=== PATIENT | male | born 1995 | race Caucasian/White ===

== ENCOUNTER 2019-02-10 18:44 | Emergency (ER) | payer OTHER, MEDICAID, SELFPAY ==
[2019-02-10 19:19] VITALS: BP 119/82; PULSE 104; RESP 16; TEMP 36.4; O2SAT 96; BMI 28.5
--- NOTE | 2019-02-10 20:11 | ED_ITS ---
HPI - Skin/Abscess/Foreign Bdy General Chief complaint: Skin/Abscess/Foreign Body Stated complaint: left cyst under butt cheek x3 days Time Seen by Provider: 02/10/19 18:47 Source: patient and family Mode of arrival: Ambulatory Limitations: no limitations History of Present Illness HPI narrative: 23-year-old male smoker with benign medical history presents with his significant other in the chief complaint of a red painful lump on his left buttock which started draining earlier today. It has been there for about a week and he saw his primary doctor few days ago was put on Bactrim. States he has had trouble keeping the Bactrim down as it makes him nauseated. He denies any other systemic findings such as fever chills. He denies any pain with bowel or urination MD complaint: abscess/boil Onset (ago): day(s) Tetanus up to date: yes Location: buttocks Severity: mild Quality: burning and aching Pain Consistency: constant Relieving factors: none Exacerbating factors: palpation Context: none Associated symptoms: denies other symptoms Treatments prior to arrival: bandages, attempted to drain pus at home and antibiotic Related Data Previous Rx's Medication Instructions Recorded doxycycline hyclate 100 mg PO BID #20 cap 02/10/19 Allergies Allergy/AdvReac Type Severity Reaction Status Date / Time prednisone Allergy Verified 02/10/19 20:56 Review of Systems Constitutional Constitutional: Denies chills, Denies fatigue, Denies fever(s), Denies frequent falls, Denies lethargy and Denies weakness Eyes Eyes: Denies change in vision, Denies eye discharge, Denies irritation and Denies loss of vision ENT Ears, Nose, Mouth, and Throat: Denies change in voice, Denies dizziness, Denies neck pain, Denies sore throat and Denies throat swelling Cardiovascular Cardiovascular: Denies chest pain, Denies irregular heart rhythm, Denies lightheadedness, Denies palpitations, Denies dyspnea, Denies dyspnea on exertion and Denies orthopnea Respiratory Respiratory: Denies cough, Denies dyspnea, Denies dyspnea on exertion and Denies wheezing Gastrointestinal Gastrointestinal: Denies abdominal pain, Denies change in bowel habits, Denies diarrhea, Reports nausea and Reports vomiting Genitourinary Genitourinary: Denies hematuria, Denies flank pain, Denies urinary incontinence and Denies urinary urgency Musculoskeletal Musculoskeletal: Denies back pain, Denies muscle weakness, Denies neck pain, Denies numbness and Denies tingling Integumentary/Breasts Skin/Breast: Denies pruritus, Reports erythema, Denies rash, Reports skin pain and Reports skin swelling Neurologic Neurologic: Denies behavioral changes, Denies confusion, Denies dizziness, Denies frequent falls, Denies loss of vision, Denies numbness, Denies tingling and Denies weakness Psychiatric Psychiatric: Denies anxiety, Denies behavioral changes, Denies confusion, Denies depression, Denies homicidal ideation and Denies suicidal ideation Endocrine Endocrine: Denies fatigue, Denies flushing and Denies palpitations Hematologic/Lymphatic Hematologic/Lymphatic: Denies easy bruising Allergic/Immunologic Allergic/Immunologic: Denies urticaria, Denies throat swelling and Denies wheezing PFSH Social History Smoking Status: Current every day smoker Social History Smoking Status: Current every day smoker Exam Narrative Exam Narrative: GEN: 23-year-old male appears stated age AOx3 and in mild distress EYES: Pupils are equal, round, and reactive to light and accommodation. Extraoccular muscles are intact bilaterally. There is no subconjunctival hemorrhage or exudate. CHEST: Lungs are clear to auscultation bilaterally and free of wheezes, rales, or rhonchi. Heart rate is regular rhythm, there are no murmurs, clicks, rubs, or gallops. There is no chest wall tenderness. ABD: Abdomen is soft and nontender. There is no guarding or rebound. Bowel s ounds are normal in all 4 quadrants. There is no mass or organomegaly. RECTAL: 2 x 3 cm tender lesion in left buttock with some recent spontaneous drainage. No fluctuance noted very minimal induration, no overlying erythema. No pain on rectal exam, no drainage no hemorrhoid or other EXT: Full painless ROM of all extremities with no loss of sensation or strength. SKIN: Warm, pink, and dry. No erythema or rash Initial Vital Signs Initial Vital Signs: Vital Signs Temperature 97.6 F 02/10/19 19:19 Pulse Rate 104 H 02/10/19 19:19 Respiratory Rate 16 02/10/19 19:19 Blood Pressure 119/82 02/10/19 19:19 Pulse Oximetry 96 02/10/19 19:19 Course Orders Ordered: Discontinued Medications Hydrocodone Bitart/Acetaminophen (Vicodin Prepack) 1 bottle MISC SEEINSTR ONE Stop: 02/10/19 20:31 Last Admin: 02/10/19 20:56 Dose: 1 bottle Documented by: BEVERLEY Doxycycline Hyclate (Vibramycin) 100 mg PO NOW ONE Stop: 02/10/19 20:31 Last Admin: 02/10/19 20:56 Dose: 100 mg Documented by: BEVERLEY Vital Signs Vital signs: Vital Signs - 8 hr 02/10/19 19:19 Temperature 97.6 F Pulse Rate 104 H Respiratory Rate 16 Blood Pressure 119/82 Pulse Oximetry 96 MDM - Skin/Abscess/Foreign Bdy MDM Narrative Medical decision making narrative: 23-year-old male smoker was spontaneously draining abscess. Painless rectal exam. No systemic findings. Patient became severely nauseated with Bactrim hence my decision to switch to doxy. As it is spontaneously draining there is no indication for incision and drainage. Patient given return precautions and encouraged to use warm compresses and soaks with Epsom salts Discharge Plan Departure Patient Disposition: Home Clinical Impression: Abscess of skin or subcutaneous tissue Qualifiers: Site of cutaneous abscess: buttock Qualified Code(s): L02.31 - Cutaneous abscess of buttock Discharge Date/Time: 02/10/19 21:00 Instructions: DI for Skin Abscess Activity Restrictions/Additional Instructions: *You have been diagnosed with [left buttock abscess] *What to do: *Take medications as directed: Stopped taking the antibiotic you have been given by your doctor for take the new medicines as directed *Follow up with your primary care provider in 2-3 days, call for an appointment. Let them know you were seen in the Emergency Department and that we ask that you be seen in follow up *Return to ER if you should have any new, worsening or concerning symptoms, such as [fever over 101, shaking chills, significant pain with bowel movement or other bothersome symptoms] Prescriptions: New doxycycline hyclate 100 mg capsule 100 mg PO BID Qty: 20 RF: 0 Referrals: Prateek Singh MD [Primary Care Provider] -
[2019-02-10] MEDS: DOXYCYCLINE HYCLATE 100 MG TABLET PO (20:56)
[2019-02-10] MEDS: HYDROCODONE/ACET 5/325 PREPACK 1 BOTTLE MISC (20:56)
--- NOTE | 2019-02-10 20:57 | PC.NURSE ---
Pt evaluated by provider. Unseen by this RN, all other areas WNL
== END 2019-02-10 21:00 | disposition home or self-care (01) ==
PROVIDERS: Emergency Provider Emergency Medicine; PCP Family Medicine
DX: L02.31 Cutaneous abscess of buttock (principal)
CPT/HCPCS: 99282; 99283

== ENCOUNTER 2020-05-10 21:22 | Emergency (ER) | payer OTHER, MEDICAID, SELFPAY ==
[2020-05-10 21:34] VITALS: BP 121/72; PULSE 93; RESP 16; TEMP 37.3; O2SAT 97; BMI 32.8
--- NOTE | 2020-05-10 21:38 | ED.GENADULT ---
HPI - General Adult General Chief complaint: Dental/Oral Stated complaint: states broke a tooth, thinks over used mouthwash Time Seen by Provider: 05/10/20 21:38 History of Present Illness HPI narrative: 24-year-old gentleman currently living in his car with multiple dental issues, caries, abscesses and broken teeth presents with increasing pain in the left upper quadrant of his mouth. He recently had a large abscess in the right lower quadrant and completed a course of amoxicillin. He states that from months he has had fevers and chills and continues to have significant mouth pain creating headaches. He has tried to get in to dentist but they are scheduling 1-2 months out or want him to complete antibiotics before they were able to see him. Was using an [id number] mouthwash today to try to alleviate some of his dental pain and feels that it significantly irritated his tongue and the roof of his mouth. Related Data Previous Rx's Medication Instructions Recorded doxycycline hyclate 100 mg PO BID #20 cap 02/10/19 amoxicillin 500 mg PO TID #60 cap 05/10/20 Allergies Allergy/AdvReac Type Severity Reaction Status Date / Time prednisone Allergy Verified 02/10/19 20:56 Review of Systems Review of Systems Narrative: Pertinent positive and negative findings as per HPI Remainder of review of systems is otherwise unremarkable for Constitutional: weakness ENT: No sore throat, neck pain, ear pain CV: Chest pain, palpitations, Respiratory: Cough, wheeze, dyspnea GI: Nausea, vomiting, diarrhea, : Dysuria, hematuria, flank pain Patient History Social History Smoking Status: Current every day smoker Smoking Status: Current every day smoker alcohol intake frequency: other Substance Use Type: marijuana and crack/cocaine Exam Narrative Exam Narrative: General: Alert appropriate, mild distress related to dental pain HEENT: Poor overall dental hygiene with multiple caries, multiple broken teeth. No obvious draining abscesses and no palpable abscess is over external portion of the jaw or maxilla Respiratory: Able to speak in full sentences, no obvious respiratory distress Skin: No obvious rashes, warm and dry Neurologic: Grossly intact no obvious asymmetries or abnormalities Psych: appropriate insight and affect, cooperative Initial Vital Signs Initial Vital Signs: Vital Signs Temperature 99.2 F 05/10/20 21:34 Pulse Rate 93 H 05/10/20 21:34 Respiratory Rate 16 12/27/20 21:34 Blood Pressure 121/72 05/10/20 21:34 Pulse Oximetry 97 05/10/20 21:34 Course Orders Ordered: Discontinued Medications Acetaminophen (Acetaminophen 325 Mg Tablet) 325 mg PO NOW ONE Stop: 05/10/20 21:50 Last Admin: 05/10/20 21:55 Dose: 325 mg Documented by: Amoxicillin (Amoxicillin 250 Mg Capsule) 500 mg PO NOW ONE Stop: 05/10/20 21:50 Last Admin: 05/10/20 21:56 Dose: 500 mg Documented by: Ibuprofen (Ibuprofen 400 Mg Tablet) 400 mg PO NOW ONE Stop: 05/10/20 21:50 Last Admin: 05/10/20 21:55 Dose: 400 mg Documented by: Vital Signs Vital signs: Vital Signs - 8 hr 05/10/20 21:34 Temperature 99.2 F Pulse Rate 93 H Respiratory Rate 16 Blood Pressure 121/72 Pulse Oximetry 97 Medical Decision Making [facility] Narrative Medical decision making narrative: 24-year-old gentleman with multiple dental infections, broken teeth and the likely developing abscess in the left upper quadrant. He is given a prescription for amoxicillin 500 mg 3 times a day for 10 days and strongly encouraged to follow-up with a dentist and take a scheduled appointment even if it offered a month out. Safe for home discharge Discharge Plan Departure Patient Disposition: Home Clinical Impression: Toothache, Dental caries Fracture of tooth Qualifiers: Encounter type: initial encounter Fracture type: closed Qualified Code(s): S02.5XXA - Fracture of tooth (traumatic), initial encounter for closed fracture Instructions: DI for Dental Pain Activity Restrictions/Additional Instructions: Thank you for coming in today I am sorry that your teeth or causing you some any problems. I have given you a prescription for amoxicillin, 500 mg to be taken 3 times a day for the next 10 days to try to decrease the overall infection in your mouth. You absolutely need to continue trying to get in to a dental clinic. If they offer you an appointment in a month please take that and do continue to try for earlier appointment. Using 400 mg of ibuprofen (2 [id number] pills) and 1 Tylenol every 6 hours can be very helpful in controlling pain. I wish you the best Prescriptions: New amoxicillin 250 mg capsule 500 mg PO TID Qty: 60 RF: 0 No Action doxycycline hyclate 100 mg capsule 100 mg PO BID Qty: 20 RF: 0 Referrals: Prateek Singh MD [Primary Care Provider] -
[2020-05-10] MEDS: ACETAMINOPHEN 325 MG TABLET PO (21:55)
[2020-05-10] MEDS: IBUPROFEN 400 MG TABLET PO (21:55)
[2020-05-10] MEDS: AMOXICILLIN 250 MG CAPSULE 500 MG PO (21:56)
== END 2020-05-10 22:10 | disposition home or self-care (01) ==
PROVIDERS: Emergency Provider Emergency Medicine; PCP Family Medicine
DX: S02.5XXA Fracture of tooth (traumatic), initial encounter for closed fracture (principal); K02.9 Dental caries, unspecified; K08.89 Other specified disorders of teeth and supporting structures
CPT/HCPCS: 99281; 99283

== ENCOUNTER 2020-05-18 06:22 | Emergency (ER) | payer OTHER, MEDICAID, SELFPAY ==
[2020-05-18 06:45] VITALS: BP 131/83; PULSE 89; RESP 16; TEMP 36.9; O2SAT 97; BMI 32.8
[2020-05-18 06:50] LABS: Appearance Urine UA CLEAR; Bilirubin Urine UA NEGATIVE (NEGATIVE); Color Urine UA YELLOW; Glucose Urine UA TRACE g/dL (Negative); Ketones Urine UA NEGATIVE (NEGATIVE); Leukocyte Esterase Urine UA NEGATIVE (NEGATIVE); Nitrite Urine UA NEGATIVE (Negative); Occult Blood Urine UA 3+ (Negative); Protein Urine UA TRACE (Negative); Specific Gravity Urine UA >=1.030 (1.000-1.035); Urobilinogen Urine UA 0.2 E.U./dL (0.2); pH Urine UA 5.5 (4.5-8.0)
[2020-05-18 06:59] LABS: RBC Urine 5-10/HPF (0-5/HPF); Squamous Epithelial Cell Urine 0-1 /HPF (0-5/HPF); WBC Urine 0-1/HPF (0-5/HPF)
[2020-05-18 07:00] LABS: Bacteria Urine Moderate (10-30); Culture Indicated Urine Cult Not Indicated
--- NOTE | 2020-05-18 07:08 | ED_ITS ---
HPI - Male Genitourinary General Chief complaint: Urogenital-Male Stated complaint: peeing blood Time Seen by Provider: 05/18/20 06:36 Source: patient and old records reviewed Mode of arrival: Ambulatory Limitations: no limitations History of Present Illness HPI Narrative: This is a 24-year-old male who comes in with complaint of bloody urine. Patient states that he had some left flank pain which has since resolved followed by some pain at the tip of the penis. Patient states he did have blood including some clots evacuate. He also had a little bit of suprapubic discomfort. He has not had fevers. He did feel sweaty earlier. He had some nausea but has not been vomiting. He denies any other abdominal pain at states flank pain has completely resolved. Patient denies any issues with bowel movements. No testicular pain rate. No difficulty with urination. No discharge. Patient denies any major medical issues besides asthma. Does smoke 1/2 pack tobacco daily. Related Data Previous Rx's Medication Instructions Recorded doxycycline hyclate 100 mg PO BID #20 cap 02/10/19 amoxicillin 500 mg PO TID #60 cap 05/10/20 Allergies Allergy/AdvReac Type Severity Reaction Status Date / Time prednisone Allergy Verified 02/10/19 20:56 Review of Systems Review of Systems ROS Unobtainable: All systems reviewed & are unremarkable except as noted in HPI and below Patient History Medical History (Updated 05/18/20 @ 07:32 by Breanna Negron DO) Asthma Social History Smoking Status: Current every day smoker Smoking Status: Current every day smoker alcohol intake frequency: other Substance Use Type: marijuana Exam Narrative Exam Narrative: GENERAL: Alert and oriented x three, well-nourished, well- appearing male in mild distress HEENT: Head normocephalic, atraumatic, EOMI, pupils reactive, face symmetric, moist mucous membranes NECK: Supple, full range of motion CARDIOVASCULAR: Regular rate and rhythm without murmurs, rubs or gallops. RESPIRATORY: Breath sounds equal bilaterally, no wheezes rales or rhonchi. ABDOMEN: Soft, nontender. Normoactive bowel sounds all 4 quadrants. No guarding or rebound, rigidity, no mass : No CVA tenderness. Male: normal external examination, no penile discharge or lesions, testicles non-tender, cremasteric reflex intact, no inguinal hernias noted. EXTREMITIES: Normal range of motion, no clubbing or edema. Neurovascularly intact NEUROLOGICAL: Cranial nerves II through XII grossly intact. Moving all extremities SKIN: Warm, dry, no petechiae, no rashes or lesions. Initial Vital Signs Initial Vital Signs: Vital Signs Temperature 98.4 F 05/18/20 06:45 Pulse Rate 89 05/18/20 06:45 Respiratory Rate 16 05/18/20 06:45 Blood Pressure 131/83 05/18/20 06:45 Pulse Oximetry 97 05/18/20 06:45 Course Orders Ordered: ED Orders 05/18/20 06:45 Urinalysis and Microscopic Stat 05/18/20 06:48 Urine Culture Stat Vital Signs Vital signs: Vital Signs - 8 hr 05/18/20 06:45 05/18/20 07:52 Temperature 98.4 F 98.2 F Pulse Rate 89 78 Respiratory Rate 16 15 Blood Pressure 131/83 125/88 Pulse Oximetry 97 100 MDM - Male Genitourinary Lab Data Attestation: I reviewed the patient's lab results. Labs: Lab Results 05/18/20 Range/Units 06:45 Urine Color Yellow Urine Appearance Clear Urine pH 5.5 (4.5-8.0) Ur Specific [place] >=1.030 H (1.000-1.035) Urine Protein Trace H (Negative) Urine Glucose (UA) Trace H (Negative) g/dL Urine Ketones Negative (NEGATIVE) Urine Occult Blood 3+ H (Negative) Urine Nitrate Negative (Negative) Urine Bilirubin Negative (NEGATIVE) Urine Urobilinogen 0.2 (0.2) E.U./dL Ur Leukocyte Esterase Negative (NEGATIVE) Urine RBC 5-10/hpf H (0-5/HPF) Urine WBC 0-1/hpf (0-5/HPF) Ur Squamous Epith Cells 0-1 /hpf (0-5/HPF) Urine Bacteria Moderate (10-30) H (None) Ur Culture Indicated? Cult not indicated MDM Narrative Medical decision making narrative: 24-year-old comes in with flank pain radiating down to the suprapubic area with hematuria which has since resolved. Patient has not had prior symptoms in the past. Has not had had discharge or any other suspicious infectious changes. Discussed with patient at this time defers lab work or imaging which I think is appropriate as his symptoms have resolved. I suspect patient had a kidney stone which he has since passed. He was asked to return if he has new or worsening symptoms. Discharge Plan Departure Patient Disposition: Home Clinical Impression: Hematuria Instructions: DI for Hematuria Activity Restrictions/Additional Instructions: Follow-up with the next several weeks for recheck to make sure that all hematuria has cleared from your urine. You may take ibuprofen and/or Tylenol as needed if you have recurrent symptoms. Return to the ER for fevers greater 100.4 F, new or worsening back or flank pain, abdominal pain, persistent vomiting, inability urinate, large clots or increasing blood in your urine or other new or concerning symptoms. Prescriptions: No Action doxycycline hyclate 100 mg capsule 100 mg PO BID Qty: 20 RF: 0 amoxicillin 250 mg capsule 500 mg PO TID Qty: 60 RF: 0 Referrals: Prateek Singh MD [Primary Care Provider] -
[2020-05-18 07:52] VITALS: BP 125/88; PULSE 78; RESP 15; TEMP 36.8; O2SAT 100
== END 2020-05-18 07:53 | disposition home or self-care (01) ==
PROVIDERS: Emergency Medicine; Emergency Provider Emergency Medicine; PCP Family Medicine
DX: R31.9 Hematuria, unspecified (principal); R11.0 Nausea; Z72.0 Tobacco use; J45.909 Unspecified asthma, uncomplicated
CPT/HCPCS: 81001; 87086; 99281; 99282

== ENCOUNTER 2020-11-20 13:27 | Emergency (ER) | payer OTHER, MEDICAID, SELFPAY ==
[2020-11-20 13:35] VITALS: BP 122/67; PULSE 85; RESP 16; TEMP 37; O2SAT 98; BMI 30.4
[2020-11-20 14:33] VITALS: BP 116/69; PULSE 78; RESP 20; O2SAT 98
== END 2020-11-20 16:45 | disposition left against medical advice (07) ==
PROVIDERS: Emergency Provider Emergency Medicine; PCP Family Medicine
CPT/HCPCS: 99281